=== PATIENT | female | born 1985 | race Caucasian/White ===

== ENCOUNTER 2022-08-08 16:25 | Inpatient (IN) | payer MEDICAID, SELFPAY ==
[2022-08-08] MEDS ORDERED: Promethazine HCl 25 MG/ML VIAL IM PRN (17:15)
[2022-08-08] MEDS ORDERED: Docusate 100 MG CAP PO PRN (17:15)
[2022-08-08] MEDS ORDERED: Acetaminophen 500 MG TAB PO PRN (17:15)
[2022-08-08] MEDS ORDERED: hydrALAZINE 20 MG/ML VIAL SLOW IVP PRN (17:15)
[2022-08-08] MEDS ORDERED: Ondansetron PF 4 MG/2 ML Vial IVP PRN (17:15)
[2022-08-08] MEDS ORDERED: Zolpidem Tartrate 5 MG TAB PO PRN (17:15)
[2022-08-08 17:59] VITALS: BMI 26.8
[2022-08-08] MEDS ORDERED: Betamet Acet/Betamet Na Ph 30 MG/5 ML VIAL ONE (18:08)
[2022-08-08] MEDS ORDERED: Betamet Acet/Betamet Na Ph 30 MG/5 ML VIAL IM SCH (18:15)
[2022-08-08 19:19] LABS: Hemoglobin 9.5 g/dL (12.0-15.5); Mean Corpuscular HGB CONC 32.8 g/dL (32.0-36.0); Mean Corpuscular Hemoglobin 25.4 pg (27.0-33.0); Mean Corpuscular Volume 77.5 fl (81.6-98.3); Mean Platelet Volume 9.9 fl (7.4-10.4); Platelet Count 270 10x3/uL (150-450); RBC Distribution Width 15.7 % (11.5-14.5); Red Blood Cell (RBC) Count 3.74 10x6/uL (3.90-5.03); White Blood Cell (WBC) Count 8.2 10x3/uL (3.5-10.5)
[2022-08-08] MEDS: Lactated Ringer's 1,000 ML IV SCH (19:40)
[2022-08-08 19:44] LABS: HBSAg Index 0.15 S/CO (0-0.99); Hep B Surf Ag Non-Reactive S/CO (NonReactive)
[2022-08-08 19:45] LABS: Syphilis Antibody Nonreactive (Nonreactive); Syphilis Antibody Index 0.01 S/CO (<1.00 Non-Reactive)
[2022-08-08] MEDS ORDERED: Azithromycin 500 MG VIAL ONE (19:47)
[2022-08-08] MEDS: CEFAZOLIN 2 GM VIAL ONE (19:56)
[2022-08-08] MEDS ORDERED: Dexmedetomidine 200 MCG/2 ML VIAL ONE (20:02)
[2022-08-08] MEDS ORDERED: Fentanyl 100 MCG/2 ML VIAL ONE (20:02)
[2022-08-08] MEDS ORDERED: Bicitra 30 ML UDCUP PO PRN (20:03)
[2022-08-08] MEDS ORDERED: Oxytocin 10 UNITS/ML VIAL ONE ×2 (20:08→21:16)
[2022-08-08] MEDS ORDERED: Phenylephrine 40 MG/NS 250 ML 250 ML ONE (20:08)
[2022-08-08] MEDS ORDERED: PHENYLEPHRINE-NS 100 MCG/ML 10 ML SYRINGE ONE (20:08)
[2022-08-08] MEDS ORDERED: Azithromycin 500 MG in Sodium Chloride 0.9% 250 ML 250 ML IVPB SCH (20:15)
[2022-08-08] MEDS ORDERED: CEFAZOLIN 2 GM in Sodium Chloride 0.9% 100 ML IVPB SCH (20:15)
[2022-08-08] MEDS ORDERED: Methylergonovine 0.2 MG/ML VIAL ONE (20:21)
[2022-08-08] MEDS ORDERED: Misoprostol 200 MCG TAB ONE (20:21)
[2022-08-08] MEDS ORDERED: Carboprost 250 MCG/ML AMP ONE (20:22)
[2022-08-08] MEDS ORDERED: Promethazine HCl 25 MG/ML VIAL ONE (20:50)
[2022-08-08] MEDS ORDERED: Ketorolac Tromethamine 30 MG/ML VIAL ONE (21:00)
[2022-08-08] MEDS ORDERED: Ondansetron HCl/PF 4 MG/2 ML Vial IVP PRN (22:07)
[2022-08-08] MEDS ORDERED: HYDROmorphone 2 MG/ML VIAL SLOW IVP PRN (22:07)
[2022-08-08] MEDS ORDERED: Fentanyl 100 MCG/2 ML VIAL SLOW IVP PRN (22:07)
[2022-08-08] MEDS ORDERED: Meperidine HCl/PF 25 MG/ML VIAL SLOW IVP PRN (22:07)
[2022-08-08 23:27] LABS: HIV (1/2) Antibody/Antigen Non-Reactive (NonReactive)
[2022-08-09] MEDS ORDERED: Acetaminophen 325 MG TAB PO PRN (01:16)
[2022-08-09] MEDS ORDERED: diphenhydrAMINE 25 MG CAP PO PRN (01:16)
[2022-08-09] MEDS ORDERED: hydrALAZINE 20 MG/ML VIAL SLOW IVP PRN (01:16)
[2022-08-09] MEDS ORDERED: Lanolin Ointment 7 GM TUBE TOP PRN (01:16)
[2022-08-09] MEDS ORDERED: Methylergonovine 0.2 MG/ML VIAL IM PRN (01:16)
[2022-08-09] MEDS ORDERED: NS w/ Oxytocin 30 units 500 ML IV SCH (01:16)
[2022-08-09] MEDS ORDERED: Boostrix 0.5 ML (Tdap) VIAL (>/=7 yrs of age) IM ONE (01:16)
[2022-08-09] MEDS ORDERED: Ondansetron PF 4 MG/2 ML Vial IVP PRN (01:16)
[2022-08-09] MEDS ORDERED: Misoprostol 200 MCG TAB PR PRN (01:16)
[2022-08-09] MEDS ORDERED: Ketorolac Tromethamine 30 MG/ML VIAL IVP SCH (01:30)
[2022-08-09] MEDS: HYDROcodone/Acetaminophen 5/325 mg Tablet PO PRN ×4 (04:03→17:05)
[2022-08-09 05:25] LABS: Hemoglobin 7.4 g/dL (12.0-15.5); Mean Corpuscular HGB CONC 32.6 g/dL (32.0-36.0); Mean Corpuscular Hemoglobin 25.8 pg (27.0-33.0); Mean Corpuscular Volume 79.1 fl (81.6-98.3); Mean Platelet Volume 9.5 fl (7.4-10.4); Platelet Count 197 10x3/uL (150-450); RBC Distribution Width 15.4 % (11.5-14.5); Red Blood Cell (RBC) Count 2.87 10x6/uL (3.90-5.03); White Blood Cell (WBC) Count 10.3 10x3/uL (3.5-10.5)
[2022-08-09 05:28] LABS: SARS-CoV-2 NAA Rapid Test Not Detected (NotDetected)
[2022-08-09] MEDS: Ibuprofen 800 MG TAB PO SCH ×3 (06:26→21:40)
[2022-08-09] MEDS: Prenatal Vitamin 1 TAB PO SCH (08:19)
[2022-08-09] MEDS: Ferrous Sulfate 325 MG TAB PO SCH ×2 (08:19→21:39)
[2022-08-09] MEDS: Simethicone Chewable 80 MG TAB PO PRN ×3 (08:56→17:05)
[2022-08-09] MEDS: Lactated Ringer's 1,000 ML IV SCH (09:39)
[2022-08-09 14:12] LABS: Hep C IgG Ab Non-Reactive (NonReactive); Hep C Index 0.04 S/CO (0-0.79)
[2022-08-10] MEDS: HYDROcodone/Acetaminophen 5/325 mg Tablet PO PRN ×2 (05:52→11:48)
[2022-08-10] MEDS: Ibuprofen 800 MG TAB PO SCH ×2 (05:53→13:14)
[2022-08-10 08:07] LABS: #Basophils 0.1 10x3/uL (0.0-0.2); #Eosinphils 0.1 10x3/uL (0.0-0.5); #Monocytes 0.7 10x3/uL (0.0-1.1); #Neutrophils 8.5 10x3/uL (1.5-8.4); %Basophils 0.4 % (0.0-2.0); %Eosinophils 0.8 % (0.0-6.0); %Lymphocytes 19.6 % (18.0-47.0); %Monocytes 5.7 % (0.0-10.0); %Neutrophils 72.1 % (40.0-75.0); Hemoglobin 7.1 g/dL (12.0-15.5); Mean Corpuscular HGB CONC 33.2 g/dL (32.0-36.0); Mean Corpuscular Hemoglobin 26.8 pg (27.0-33.0); Mean Corpuscular Volume 80.8 fl (81.6-98.3); Mean Platelet Volume 9.6 fl (7.4-10.4); Platelet Count 261 10x3/uL (150-450); Red Blood Cell (RBC) Count 2.65 10x6/uL (3.90-5.03); White Blood Cell (WBC) Count 11.8 10x3/uL (3.5-10.5)
[2022-08-10] MEDS: Prenatal Vitamin 1 TAB PO SCH (08:40)
[2022-08-10] MEDS: Ferrous Sulfate 325 MG TAB PO SCH (08:40)
[2022-08-10] MEDS: Simethicone Chewable 80 MG TAB PO PRN (10:11)
[2022-08-10 12:34] VITALS: BP 118/80; TEMP 97.5
== END 2022-08-10 16:45 | disposition home or self-care (01) | DRG 788 ==
LOC: CSHLD 16:25 → CSHPP 08-09 08:43
PROVIDERS: ADMIT Obstetrics & Gynecology; ATTEND Obstetrics & Gynecology
PROC: 10D00Z1 Extraction of Products of Conception, Low, Open Approach (ICD-10-PCS; principal; 2022-08-08)
PROC: 0UB90ZZ Excision of Uterus, Open Approach (ICD-10-PCS; 2022-08-08)
PROC: 10907ZC Drainage of Amniotic Fluid, Therapeutic from Products of Conception, Via Natural or Artificial Opening (ICD-10-PCS; 2022-08-08)
DX: O60.14X0 Preterm labor third trimester with preterm delivery third trimester, not applicable or unspecified (principal); O26.893 Other specified pregnancy related conditions, third trimester; Z67.11 Type A blood, Rh negative; Z3A.35 35 weeks gestation of pregnancy; O32.1XX1 Maternal care for breech presentation, fetus 1; O32.1XX2 Maternal care for breech presentation, fetus 2; O30.043 Twin pregnancy, dichorionic/diamniotic, third trimester; Z37.2 Twins, both liveborn; O34.13 Maternal care for benign tumor of corpus uteri, third trimester; D25.9 Leiomyoma of uterus, unspecified; F17.210 Nicotine dependence, cigarettes, uncomplicated; O99.334 Smoking (tobacco) complicating childbirth; Z87.440 Personal history of urinary (tract) infections
CPT/HCPCS: 36415; 51702; 76810; 76819; 85025; 85027; 85461; 86780; 86803; 86850; 86900; 86901; 87340; 87389; 88305; 88307; 90384; 96372; J1885; J2550; J2590; J3010; J7120; U0002